=== PATIENT | female | born 1990 | race Caucasian/White ===

== ENCOUNTER → 2018-06-25 11:04 | Outpatient (CLI) | payer OTHER, SELFPAY ==
[2018-06-25 12:02] LABS: Absolute Lymphocyte Count 1.85 X10^3/ul (0.83-4.51); Absolute Neutrophil Count 2.3 X10^3/uL (2.0-7.7); Basophil# 0.03 X10^3/uL; Basophil% 0.6 % (0-1); Eosinophil# 0.07 X10^3/uL; Eosinophils% 1.5 % (0-5); Hematocrit 39.9 % (37-47); Hemoglobin 12.8 g/dl (12.0-15.0); Lymphocyte # 1.85 X10^3/ul (4.0); Lymphocyte % 39.9 % (19-41); Mean Corp Hgb Conc 32.1 g/gl (32-36); Mean Corpuscular Hgb 27.4 pg (27.0-32.0); Mean Corpuscular Volume 85.3 fL (81-99); Mean Platelet Vol. 11.3 fl (6.2-12.0); Monocyte% 8.6 % (0-10); Neutrophil # 2.29 X10^3/uL (2.7-7.7); Neutrophil % 49.4 % (47-70); Platelet Count 313 K/mm3 (150-450); RBC Distribution Width CV 13.2 % (11.6-14.6); RBC Distribution Width SD 40.5 fl (35.1-43.9); Red Blood Count 4.68 M/mm3 (4.2-5.4); White Blood Count 4.6 K/mm3 (4.4-11.0)
[2018-06-25 12:06] LABS: POSITIVE COUNT NO; POSITIVE DIFFERENTIAL NO; POSITIVE MORPHOLOGY NO
== END ==
LOC: MFPLAB 11:04 → MTRAD 11:10
PROVIDERS: Family Provider Family Medicine; PCP Family Medicine; Visit Provider Family Medicine
DX: M54.6 Pain in thoracic spine (principal); R53.83 Other fatigue
CPT/HCPCS: 36415; 72072; 85025

== ENCOUNTER → 2019-06-03 15:40 | Outpatient (CLI) | payer OTHER, SELFPAY ==
--- NOTE | 2019-06-03 15:43 | CT_ITS ---
STUDY: CT SOFT TISSUE NECK WITH CONTRAST REASON FOR EXAM: Female, 28 years old. Left posterior neck mass RADIATION DOSAGE (If Supplied By Facility): CTDIvol = ( 10.25 ) mGy, DLP = ( 291.67 ) mGycm TECHNIQUE: The patient was scanned in a multi-detector CT scanner. High resolution transaxial imaging was performed following intravenous administration of 75ml IV Isovue 300. Sagittal and coronal images were reconstructed. Individualized dose optimization techniques were used for this CT. COMPARISON: None. FINDINGS: Normal bilateral parotid glands. Normal bilateral floor associate spaces. Normal bilateral parapharyngeal spaces. Normal bilateral carotid spaces. Normal bilateral sublingual and submandibular glands and spaces. Normal visualized nasopharynx. Normal retropharyngeal space. Normal perivertebral space. Normal visualized bilateral faucial tonsils. The visualized tongue, tongue base and oropharynx are normal. The visualized cervical lymph nodes (levels I-) are within normal size limits, and maintain normal morphology. A skin markers been placed over the left posterior neck over region of clinical concern. No underlying neck masses or fluid collections are seen at the level of the marker. Several shotty nonenlarged lymph nodes are present in the neck bilaterally. There is no abnormal contrast enhancement. Normal epiglottis, bilateral vallecula and hypopharynx. The pre-epiglottic and paraglottic adipose spaces are normal. Normal visualized bilateral piriform sinuses, aryepiglottic folds, vocal cords, and arytenoid-cricoid articulations. Normal subglottic trachea. Normal bilateral lobes of the thyroid gland. Normal visualized pulmonary apices. Normal visualized paranasal sinuses. Normal visualized cervical spine. CT/Soft Tissue Neck WITH Contrast IMPRESSION: No evidence of neck mass or adenopathy. Electronically Signed: Abdon Prasad MD at 16:06 EDT Tel , Service support ,
== END ==
PROVIDERS: Family Provider Family Medicine; PCP Family Medicine; Referring Provider Otolaryngology; Visit Provider Otolaryngology
DX: R22.1 Localized swelling, mass and lump, neck (principal)
CPT/HCPCS: 70491; Q9967

== ENCOUNTER → 2019-11-10 11:02 | Outpatient (CLI) | payer OTHER, SELFPAY ==
[2019-11-10 12:17] LABS: Absolute Lymphocyte Count 0.71 X10^3/uL (0.83-4.51); Absolute Neutrophil Count 0.9 X10^3/uL (2.0-7.7); Basophil# 0.03 X10^3/uL; Basophil% 1.4 % (0-1); Eosinophil# 0.02 X10^3/uL; Eosinophils% 0.9 % (0-5); Hematocrit 39.1 % (37-47); Hemoglobin 12.3 g/dL (12.0-15.0); Lymphocyte # 0.71 X10^3/ul (4.0); Mean Corp Hgb Conc 31.5 g/dL (32-36); Mean Corpuscular Hgb 27.3 pg (27.0-32.0); Mean Corpuscular Volume 86.9 fL (81-99); Monocyte# 0.53 X10^3/uL; Monocyte% 23.9 % (0-10); NRBC Flagged by Analyzer 0 % (0-5); Neutrophil # 0.93 X10^3/uL (2.7-7.7); Neutrophil % 41.8 % (47-70); POSITIVE DIFFERENTIAL YES; Platelet Count 230 K/mm3 (150-450); RBC Distribution Width CV 13.3 % (11.6-14.6); RBC Distribution Width SD 42.3 fl (35.1-43.9); White Blood Count 2.2 K/mm3 (4.4-11.0)
[2019-11-10 12:24] LABS: D-Dimer Quantitative (DVT/PE) 0.35 FEU/ug/m (0.27-0.49)
[2019-11-10 12:25] LABS: Differential Indicated SCAN CRITERIA MET
[2019-11-10 12:43] LABS: Anion Gap 5 (5-15); BUN 11 mg/dL (7-18); BUN/Creat Ratio 13.8 RATIO (10-20); Calcium,Total 9.2 mg/dL (8.5-10.1); Chloride 107 mmol/L (98-107); EST Glomerular Filtration Rate 91 mL/min (>60); Est Glom Filt Rate - Afr Amer 110 mL/min (>60); Glucose 71 mg/dL (74-106); Potassium 4.1 mmol/L (3.5-5.1); Sodium Level 141 mmol/L (136-145)
[2019-11-10 12:45] LABS: Red Cell Morphology NORM C+C NORMAL (NORM C&C)
[2019-11-11 12:47] LABS: Pathologist Review Reviewed
== END ==
PROVIDERS: Family Provider Family Medicine; PCP Family Medicine; Referring Provider Family Medicine; Visit Provider Family Medicine
DX: R07.9 Chest pain, unspecified (principal)
CPT/HCPCS: 36415; 80048; 85025; 85379

== ENCOUNTER → 2019-11-22 10:51 | Outpatient (CLI) | payer OTHER, SELFPAY ==
--- NOTE | 2019-11-22 10:53 | NM_ITS ---
CLINICAL: 29-year-old female with reported history of abdominal pain. RADIONUCLIDE HEPATOBILIARY SCINTIGRAPHY COMPARISON: None available FINDINGS: Following the intravenous administration of 5.2 mCi of 99m Tc Mebrofenin, hepatobiliary images reveal: 1. Relatively prompt and homogeneous radiopharmaceutical concentration is noted by a normal sized liver. No parenchymal defects are identified. 2. Gallbladder activity is identified at 15 minutes post radiopharmaceutical administration. 3. Small intestinal tract is not visualized during 60 minutes of pre-CCK sequential imaging. Small bowel activity is identified following the administration of cholecystokinin. 4. Washout of the radiopharmaceutical by the hepatic parenchyma appears qualitatively normal. Cholecystokinin (0.02 ug/kg) was administered intravenously over a 30-minute period. The post CCK gallbladder ejection fraction calculated at 20 minutes following Cholecystokinin administration was noted to be 14.0 % (normal greater than 35%). NM/Hepatobilliary Img w/Pharm Int IMPRESSION: 1. ABNORMAL 99m Tc Mebrofenin hepatobiliary imaging examination with Cholecystokinin. A. A gallbladder ejection fraction calculated to be less than 35% following the administration of Cholecystokinin is consistent with the presence of functional hepatobiliary disease (gallbladder and/or sphincter of Oddi dyskinesia) and/or organic hepatobiliary disease (chronic acalculous cholecystitis and/or cystic duct syndrome) in patients with intermediate to high pretest likelihoods of hepatobiliary illness. (Darryl Hendricks et al, Journal of Nuclear Medicine 32:1695, 1991). Electronically Signed: Ruben Claros DO at 23:41 EST Tel , Service support ,
== END ==
PROVIDERS: PCP Family Medicine; Referring Provider Nurse Practitioner Adult Health; Visit Provider Nurse Practitioner Adult Health
DX: Z83.79 Family history of other diseases of the digestive system (principal)
CPT/HCPCS: 78227; A9537; J2805

== ENCOUNTER → 2019-12-01 16:59 | Outpatient (CLI) | payer OTHER, SELFPAY ==
[2019-11-25 13:44] VITALS: BMI 23.4
[2019-12-01 18:19] LABS: AST(SGOT) 19 U/L (15-37); Alanine Aminotransfer ALT/SGPT 28 U/L (13-56); Albumin, Serum 4.3 g/dL (3.2-5.0); Alkaline Phosphatase 78 U/L (45-117); Anion Gap 3 (5-15); BUN 7 mg/dL (7-18); BUN/Creat Ratio 9.1 RATIO (10-20); CRP 5.78 mg/L (0.0-3.0); Calcium,Total 9.4 mg/dL (8.5-10.1); Chloride 105 mmol/L (98-107); Creatinine, Serum 0.77 mg/dL (0.55-1.02); EST Glomerular Filtration Rate 94 mL/min (>60); Est Glom Filt Rate - Afr Amer 114 mL/min (>60); Globulin 4.5 g/dL (2.2-4.2); Glucose 89 mg/dL (74-106); Potassium 3.8 mmol/L (3.5-5.1); Protein, Total 8.8 g/dL (6.4-8.2); Sodium Level 138 mmol/L (136-145)
[2019-12-03 16:08] LABS: Endomysial Antibody IgA Negative (Negative)
[2019-12-03 21:28] LABS: Immunoglobulin A 147 mg/dL (87-352); t-Transglutaminase IgA <2 U/mL (0-3)
== END ==
PROVIDERS: PCP Family Medicine; Referring Provider Internal Medicine Gastroenterology; Visit Provider Internal Medicine Gastroenterology
DX: R10.9 Unspecified abdominal pain (principal)
CPT/HCPCS: 36415; 80053; 82784; 83516; 86140; 86255

== ENCOUNTER → 2019-12-10 | Outpatient (CLI) | payer OTHER, SELFPAY ==
[2019-11-25 13:44] VITALS: BMI 23.4
[2019-12-10 15:40] LABS: Absolute Lymphocyte Count 1.61 X10^3/uL (0.83-4.51); Absolute Neutrophil Count 3.6 X10^3/uL (2.0-7.7); Basophil# 0.05 X10^3/uL; Basophil% 0.8 % (0-1); Eosinophil# 0.06 X10^3/uL; Hematocrit 41.4 % (37-47); Hemoglobin 12.8 g/dL (12.0-15.0); Lymphocyte # 1.61 X10^3/ul (4.0); Lymphocyte % 27.3 % (19-41); Mean Corp Hgb Conc 30.9 g/dL (32-36); Mean Corpuscular Volume 87.3 fL (81-99); Mean Platelet Vol. 10.7 fl (6.2-12.0); Monocyte# 0.61 X10^3/uL; Monocyte% 10.4 % (0-10); NRBC Flagged by Analyzer 0 % (0-5); Neutrophil # 3.55 X10^3/uL (2.7-7.7); Neutrophil % 60.3 % (47-70); Platelet Count 358 K/mm3 (150-450); RBC Distribution Width CV 13.2 % (11.6-14.6); RBC Distribution Width SD 42.4 fl (35.1-43.9); Red Blood Count 4.74 M/mm3 (4.2-5.4); White Blood Count 5.9 K/mm3 (4.4-11.0)
== END | disposition home or self-care (01) ==
LOC: MFPLAB 11:51
PROVIDERS: PCP Family Medicine; Referring Provider Family Medicine; Visit Provider Family Medicine
DX: D72.9 Disorder of white blood cells, unspecified (principal)
CPT/HCPCS: 36415; 85025

== ENCOUNTER 2020-04-06 07:54 | Day surgery (SDC) | payer OTHER, SELFPAY ==
[2019-11-25 13:44] VITALS: BMI 23.4
--- NOTE | 2020-04-06 08:05 | EKG12_ITS ---
Test Reason : PRE OP Blood Pressure : / mmHG Vent. Rate : 062 BPM Atrial Rate : 062 BPM P-R Int : 140 ms QRS Dur : 108 ms QT Int : 400 ms P-R-T Axes : 078 024 038 degrees QTc Int : 406 ms Normal sinus rhythm with sinus arrhythmia Incomplete right bundle branch block Confirmed by CATRACHITO VALERA, THERON ([id number]), editorial cartoonist JUDY IBRAHIM ([id number]) on 04/12/2020 1:30:38 PM Referred By: Loan Agee Confirmed By:THERON WINSTON MD
[2020-04-06 08:19] VITALS: BP 107/67; PULSE 60; RESP 14; TEMP 37.1; O2SAT 100; BMI 23.5
[2020-04-06 08:32] LABS: Internal QC Validated? YES +Cl - CLEAR BKGD; Pregnancy, Urine Negative Negative
--- NOTE | 2020-04-06 08:39 | HP.PCM_ITS ---
History of Present Illness Date of Admission: 04/06/20 The patient is a 29 year old F presents for laparoscopic cholecystectomy. Patient had a HIDA scan that showed biliary dyskinesia of 14% ejection fraction. Patient's pain is atypical typically constant in the left back, also complains of bloating and gas which usually coincides with eating. The left back pain does not seem to coincide with the eating. Patient has been on omeprazole for several weeks as well as Protonix for several weeks and denies any changes of symptoms with either. Patient and are going to try getting again. Past Medical History Medical History: Medical History (Last Updated 11/25/19 @ 13:43 by Madeleine Mayo) Abnormal biliary HIDA scan R94.8 Anxiety F41.9 Allergies No Known Allergies Allergy (Verified 04/04/20 08:12) Home Medications: Ambulatory Orders Medication Instructions Recorded cholecalciferol (vitamin D3) 250 10,000 unit PO DAILY 11/25/19 mcg (10,000 unit) capsule Pantoprazole Sodium 40 mg PO DAILY #20 tab 12/13/19 Surgical History: Surgical History (Last Updated 11/25/19 @ 13:43 by Madeleine Mayo) History of wisdom tooth extraction K08.409 Surgical History: no surgical history Psychiatric History: No pertinent psych hx 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 Smoking Status: Never smoker Tobacco Use: Non-smoker VTE Information - Inpt Only VTE Present on Admission: Yes VTE Mechan Device Prophylaxis: SCD's - Physical Exam Vitals/I&O's: Vital Signs Temp Pulse Resp BP Pulse Ox 98.8 F 60 14 107/67 100 04/06/20 08:19 04/06/20 08:19 04/06/20 08:19 04/06/20 08:19 04/06/20 08:19 Oxygen Delivery Method Room Air Weight: 143 lb 8.335 oz Body Mass Index (BMI) 23.5 General: Alert, Oriented x3, Cooperative, No apparent distress HEENT: Atraumatic Lungs: Normal air movement Cardiovascular: Regular rate Abdomen: Soft, Non Tender, Non-Distended Extremities: No clubbing, No cyanosis, No edema Neurological: Cranial nerves II-XII grossly intact Psych/Mental Status: Normal Affect Laboratory Results 04/06/20 08:14: Total Bilirubin Pending, Direct Bilirubin Pending, AST Pending, ALT Pending, Alkaline Phosphatase Pending, Total Protein Pending, Albumin Pending 04/06/20 08:15: Urine Test Negative 04/06/20 10:34: COVID-19 (PAWEL) Not Detected Assessment/Plan 21-year-old female with biliary dyskinesia Discussed with patient that as her pain is atypical unsure that removing her gallbladder is going to relieve the left back pain as well as the gas and bloating. Patient expressed understanding and wanted to proceed. Reviewed the anatomy with the patient and discussed the procedure: laparoscopic cholecystec rylan with possible cholangiograms, possible open. Review risks including but not limited to bleeding, infection, hernia, bile leak, retained gallstones requiring another procedure ERCP- Endoscopic Retrograde Cholangiopancreatography, injury to another organ (bile ducts, common bile duct, small bowel, etc.) and conversion to an open procedure. All questions were answered. Loan Agee M.D. Pager: [phone] [facility] [address] [place] [address] [place] [address] Office: [phone] Procedure Criteria Procedure Type: Elective Procedure Essential: No COVID Risk Discussion: The surgeon/proceduralist and patient have discussed in detail the risk of exposure to and/or potential harm posed by the COVID-19 virus with having a surgery/procedure at this time versus the risk of delaying the surgery/procedure. It is not possible to know either the risk of delaying the surgery or procedure or chance of getting an infection with perfect accuracy, but a joint decision was made between the patient and the surgeon/proceduralist to proceed at this time with the scheduled surgery/procedure as indicated on the consent form.
[2020-04-06 08:43] LABS: AST(SGOT) 18 U/L (15-37); Alanine Aminotransfer ALT/SGPT 19 U/L (13-56); Albumin, Serum 3.8 g/dL (3.2-5.0); Alkaline Phosphatase 51 U/L (45-117); Bilirubin, Direct 0.28 mg/dL (0.00-0.30); Globulin 3.4 g/dL (2.2-4.2); Protein, Total 7.2 g/dL (6.4-8.2)
[2020-04-06] MEDS: Lactated Ringers 1,000 ML 100 ML IV (09:01)
[2020-04-06] MEDS: Cefazolin 2 GM in 0.9% Normal Saline 100 ML IV (09:21)
[2020-04-06] MEDS: Bupivacaine Mpf 0.5% 30 ML VIAL (09:21)
--- NOTE | 2020-04-06 09:35 | GALL_PTH ---
PATIENT: LISSETH WATTS LOC: [facility] [place] U#:[id number] AGE/SX: 29/F ROOM: RE04/06/[address]: Dr. Loan Agee MD : 1990 BED: DIS: 04/06/2020 SPEC #: [id number] RECD: 04/06/20 14:40 STATUS: AGNES RENAN #: [id number] GAVI: 04/06/20 09:[address]: Loan Agee DEPT: SURGICAL PATHOLOGY RECD BY: Diana Ahuja ENTERED: 04/07/20 09:34 SP TYPE: BEE FLORES DR: Dr. Yayo Dasilva MD Tissues: Gallbladder, NOS Procedures: Surgery Specimen Level III HEADER OPERATION: Laparoscopic cholecystectomy PRE-OP DIAGNOSIS: Biliary dyskinesia TISSUE SUBMITTED: Gallbladder MICROSCOPIC DIAGNOSIS Gallbladder, cholecystectomy: Mild chronic cholecystitis. No stones are identified in the container or in the gallbladder. SJ:leighann 04/10/20 MICROSCOPIC DESCRIPTION Slides are reviewed. GROSS DESCRIPTION Received is one container labeled with the patient's name and designated gallbladder. The specimen consists of a gallbladder measuring 7 cm in length and up to 3 cm in diameter. The external surface is pink-willoughby, smooth and glistening for the most part. Focally it is granular, hemorrhagic and contains cautery artifact. The gallbladder contains green-yellow mucoid bile and a small amount of sludge material. No stones are identified in the container or in the gallbladder. The mucosa is bile-stained and without any mass lesions. The gallbladder wall measures up to 0.2 cm in thickness. Superintendent [employer] sections from the gallbladder and the cystic duct are submitted in one cassette. / SJ:rg 04/07/20 TC:3 CPT: 37906
--- NOTE | 2020-04-06 09:35 | RAD_ITS ---
STUDY: INTRAOPERATIVE CHOLANGIOGRAM. REASON FOR EXAM: Female, 29 years old. IOC FLUOROSCOPY TIME (if supplied): ( 4.8 seconds ) minutes/seconds TECHNIQUE: An intraoperative cholangiogram was performed by the surgeon. Imaging was submitted. A cine loop of 25 images were submitted. COMPARISON: None. FINDINGS: The intrahepatic biliary ducts are unremarkable. The common bile duct is not dilated. No intraluminal filling defect is seen. There is free flow of contrast into the duodenum. RAD/Cholangiogram/ O R,Initial IMPRESSION: Unremarkable intraoperative cholangiogram. Electronically Signed: Stevie Narayan, at 10:50 EDT , Service support ,
--- NOTE | 2020-04-06 10:01 | PCM.OPRPT ---
Report of Operation Date of Procedure: 04/06/20 Pre-Operative Diagnosis: Biliary dyskinesia Post-Operative Diagnosis: Same Surgery/Procedure Performed:: Laparoscopic cholecystectomy with cholangiograms computer video game designer: Mari Mcwilliams Type of Anesthesia:: General/Supplemental Anesthesiologist: Jens Osullivan Special Medications: Ancef 2 g IV x1 Specimen's removed: Gallbladder Estimated Blood Loss (mL): <10 cc Fluids Replaced: 800 cc Description of Procedure: Indications this is a 29 year-old female who developed left upper back pain, gas and bloating especially after eating, no change with PPIs and on workup was found to have biliary dyskinesia with ejection fraction on the HIDA of 14%. Laparoscopic cholecystectomy was elected. Description procedure: The patient was placed on operating table in supine position. General Anesthesia was induced. A timeout was completed verifying correct patient, procedure, site, position and special equipment prior to beginning procedure. The abdomen was prepped and draped in usual sterile fashion. An incision was made in the natural skin line below the umbilicus. The fascia was elevated and incised. The peritoneum was elevated and incised. Entry into the peritoneum was confirmed visually and no bowel was noted in the vicinity of the incision. Ramon trocar was placed. The abdomen was insufflated with carbon dioxide to a pressure of 12-15 mmHg. Patient tolerated insufflation well. The laparoscope was then inserted and abdomen inspected. No injuries from initial trocar placement were noted. Additional trochars were then inserted in the following locations 5 mm trocar in the epigastrium and 2 more 5 mm trochars along the right costal margin. The abdomen was inspected no abnormalities were found. The table is placed in reverse Trendelenburg position with the right side up. The adhesions between the gallbladder and omentum were lysed sharply. The dome of the gallbladder was grasped with atraumatic grasper passed through the lateral port and retracted over the dome of the liver. Infundibulum was then grasped with atraumatic grasper through the midclavicular port and retracted to the right lower quadrant. This maneuver exposed Calot's triangle. The peritoneum overlying the gallbladder infundibulum was then incised and cystic duct and artery identified and circumferentially dissected. Shelby catheter was used for cholangiograms. The cholangiogram showed good filling of the common bile duct into the duodenum with no filling defects, good filling of the right and left bile ducts as well. The cystic duct and artery were then doubly clipped and divided close to the gallbladder. The gallbladder then dissected from its peritoneal attachments by electrocautery. Hemostasis was checked and the gallbladder and contained stones were removed using the endoscopic retrieval bag through the umbilical port. The gallbladder is passed off table as specimen. The gallbladder fossa was copiously irrigated with saline and hemostasis obtained. There is no evidence of bleeding from the gallbladder fossa or cystic artery leakage of bile from the cystic duct stump. Secondary trochars removed under direct vision. No bleeding was noted the trocar sites. The laparoscope was withdrawn and umbilical trocar removed. The abdomen was allowed to collapse. The fascia of the 12 mm trocar was closed with a [id number] 0 Vicryl suture. The skin was closed with sutures of 4-0 Monocryl and Steri-Strips. The orogastric tube was removed and the patient was extubated. The patient tolerated procedure well and was taken to the postanesthesia care unit in stable condition. - Complications none
--- NOTE | 2020-04-06 10:09 | DCINST_ITS ---
Discharge Diet: Light diet - advance as tolerated Discharge Activity: May not drive while taking narcotic pain medications. May shower in (days): 1 Lifting Restrictions: No lifting greater than 20 pounds x 2 weeks no strenuous exercise for 4 wks Call your doctor if your incision/area has: Continuous Slow Oozing, Sudden Increased Bleeding, Increased Pain/ Swelling, Increased Redness, Foul Smelling Discharge, Swelling at the incision site Call your doctor if you observe: Fever of 101 or Higher Remove Dressing in (days):: 1 - Okay to remove OpSite tomorrow, Steri-Strips stand for 7 to 10 days a drain out follow-up in 10 days okay to remove Additional Instructions: Okay to take ibuprofen 400-600 mg PO q6hr PRN along with the hydrocodone/acetaminophen. Avoid Tylenol since there is already Tylenol in the hydrocodone/acetaminophen. Take all pain meds with food. Hydrocodone/acetaminophen can cause constipation recommend taking daily stool softener (i.e. Colace/docusate) while taking the pain meds. Recommend starting some MiraLAX 1 to 2 days if no bowel movement. If still no bowel movement following day recommend taking magnesium citrate half the bottle and waiting 4-6 hours if still no results take the other half the bottle. Allergies/Adverse Reactions: Allergies No Known Allergies Allergy (Verified 04/04/20 08:12) Medications to take at Discharge cholecalciferol (vitamin D3) 250 mcg (10,000 unit) capsule 10,000 unit PO DAILY 11/25/19 Pantoprazole Sodium 40 mg PO DAILY #20 tab 12/13/19 Hydrocodone Bitart/Apap 5-325 [[place] 5MG-325MG] 1 - 2 tablet PO Q6H PRN PRN 4 Days #20 tablet 04/06/20 The following prescriptions were given: Hydrocodone Bitart/Apap 5-325 [Keyport 5MG-325MG] 1 - 2 tablet PO Q6H PRN PRN 4 Days #20 tablet PRN Reason: Pain Transmission Status: Sent to [facility] Primary Care Physician: Yayo Dasilva MD [Primary Care Provider] - Test Results: Test results from this visit will be discussed in further detail at your follow- up appointment, if applicable. Please Follow Up With: Loan Agee MD - After 5 PM on the weekends call [phone] When: Call the office for follow-up appointment in 2 weeks virtual/phone Proposed Discharge Date: 04/06/20
[2020-04-06 10:15] VITALS: BP 107/67; BP 130/81; PULSE 66; RESP 14; TEMP 37.1; O2SAT 98
[2020-04-06 10:29] VITALS: BP 107/67; BP 124/77; PULSE 55; RESP 16; O2SAT 100
[2020-04-06 10:45] VITALS: BP 107/67; BP 113/82; PULSE 62; RESP 14; O2SAT 100
[2020-04-06 10:59] VITALS: BP 107/67; BP 122/74; PULSE 60; RESP 14; TEMP 36.3; O2SAT 99
[2020-04-06 12:14] VITALS: BP 103/70; BP 107/67; PULSE 57; RESP 18; TEMP 36.9; O2SAT 97
== END 2020-04-06 12:19 | disposition home or self-care (01) ==
LOC: SDC 07:58 → AC 07:59
PROVIDERS: Anesthesiology; PCP Family Medicine; Referring Provider Surgery; Visit Provider Surgery
PROC: (CPT 47610; principal; 2020-04-06 09:15)
DX: K81.1 Chronic cholecystitis (principal); Z11.59 Encounter for screening for other viral diseases; Z79.899 Other long term (current) drug therapy
CPT/HCPCS: 00790; 47563; 36415; 74300; 76000; 80076; 81025; 87635; 88304; 93005; G2023; J7120; J2405; U0003

== ENCOUNTER 2020-05-18 10:00 | Outpatient (RCR) | payer OTHER, SELFPAY ==
[2020-04-18 08:41] VITALS: BMI 23.5
--- NOTE | 2020-05-04 14:02 | HP.PTEVAL ---
Patient's Visit Information LISSETH WATTS is a 29 year old F referred to Physical Therapy by Dr. Yayo Dasilva MD with a diagnosis of L ARM NUMBNESS/PAIN AND L THORACIC BACK PAIN.. Date of Evaluation: 05/04/20 Physical Therapist: Di Dean PT, Cert MDT - Visit Plan Frequency: 2-3x /Week Duration: 4-6 Weeks Plan: CONSIDER CTX. CONSIDER US, ESTIM W/MH OR CP. POSTURE CORRECTION/STRENGTHENING, INSTRUCTION IN APPROPRIATE BODY MECHANICS AND ACTIVITY MODIFICATIONS. IVANIA UE ROM, STRETCHING AND STRENGTHENING. HEP INSTRUCTION. FOCUS ON SCAPULAR STRENGTHENING WITH THER EX. - Subjective Work/Leisure: STAY AT HOME MOM: 2 CHILDREN AGES 2 AND 4. Disability: NO. Present symptoms: HEADACHES. LEFT NECK PAIN. LEFT UPPER BACK PAIN, INTERMITTENT UE PAIN, NUMBESS AND TINGLING MAINLY TO LAST TWO FINGERS. LEFT SHOULDER ACHING. NO RIGHT UE SX'S BUT SOMETIMES CAN FEEL SOME RIGHT UPPER BACK PAIN JUST BELOW SHOULDER BLADE. VERY RECENT ONSET OF LEFT LBP. PAIN SOMETIMES WRAPS AROUND LEFT RIB CAGE. Present since: ABOUT YEAR AGO. Pain Scale: Worst - 6/10 Least - 1/10. Currently: 11/05. Commenced as a result of: NO APPARENT REASON. Symptoms at onset: HEADACHE. Worse: STRESS, LIFITNG, JOGGING. Better: REST OR JUST TIME. Disturbed sleep: YES. SOMETIMES HARD TO GET COMFORTABLE TO GO TO SLEEP BUT DOESN'T WAKE HER UP AT NIGHT. Previous history/Previous treatment: CHIROPRACTOR REGULARLY SINCE LAST DECEMBER WHEN THIS CAME ON. INITIALLY WENT TO CHIROPRACTOR FOR TENSION HEADACHES BUT AFTER STARTING GOING TO CHIROPRACTOR NOTICED A LUMP BEHIND LEFT YEAR. AFTER NOTICING LUMP TRIED NEEDLING AND CUPPING. LUMP HAS BECOME PAINFUL. MASSAGE THERAPY - NE. PATIENT REPORTS ACTUALLY HAVING A HISTORY OF CHEST PAINS AND LEFT UE SX'S GOING BACK TO CHILDHOOD. HAS HAD HEART WORK UP BUT NO POSITIVE DX. PATIENT FELL OUT OF BED ABOUT AGE 5 AND BROKE HER COLLAR BONE. Dizziness: INTERMITTENT. Tinnitis: NO. Nausea: YES. Shortness of Breath: YES - STARTED IN OCT 2019. Difficulty Swollowing: NO. Gait: PATIENT REPORTS IVANIA LE BIG TOE NUMBNESS THAT IS CHRONIC. NO DIFFICULTY WITH GAIT. Accidents: NO. Unexplained weight loss: NO. Imaging: CAT SCAN LAST SUMMER OF HEAD/NECK - NORMAL. PMH/Recent major surgery: GALLBLADDER REMOVAL A MONTH AGO. - Objective Sitting Posture/Standing Posture: POOR. FORWARD HEAD AND ROUNDED SHOULDERS. NO TORTICOLLIS. Active Correction of posture: BETTER. Other Observations: INDEP GAIT AND TRANSFERS. Motor deficit: 55 LBS LEFT AND 65 LBS RIGHT WITH PATIENT RIGHT HANDED. OTHERWISE IVANIA UE MMT'ING WFL. Sensory deficit: IVANIA UE LIGHT TOUCH SENSATION INTACT AND SYMMETRICAL. ROM deficit: IVANIA UE'S WFL. Dural Signs: POSITIVE LUE. Cervical Mvmt Loss: Flex: NIL - INCREASES NECK AND LEFT UPPER BACK SX'S. Pro: NIL - INCREASES LEFT NECK. Ext: MIN - PINCHES AT BASE OF NECK. Ret: MOD - PINCHES AT BASE OF NECK. RSB: MIN - NE. LSB: MIN - NE. R Rot: MIN - FEELS FRYE INTO LEFT SIDE OF HEAD. L Rot: NIL - NE. Postural strength: POOR. Palpation: INCREASED MUSCLE TONE IVANIA UPPER TRAPS, AND CERVICAL MUSCULATURE. NO ACUTE TENDERNESS. OTHER: CERVICAL DISTRACTION TESTING HAS NE ON SX'S TODAY. TREATMENT: NEUROMUSCULAR REEDUCATION - RETRAINING OF MVMT AND POSTURE FOR SITTING, LYING AND STANDING ACTIVITIES. - Goals Goal 1:: DECREASE C/O HEAD, NECK, UPPER BACK AND LUE SX'S. Goal Time Frame: 4-6 Weeks Goal 2:: IMPROVE ADL, RECREATIONAL, AND SLEEP FUNCTION Goal Time Frame: 4-6 Weeks Goal 3:: INSTRUCT IN PROPHYLAXIS Goal Time Frame: 4-6 Weeks - Anticipated Interventions Patient/Client Instruction: Educate patient on: Condition, Plan of Care, Risk Factors, Benefits of Fitness Program For the Purpose of:: To improve self management Therapeutic Exercise to Include: Strength training, Body mechanics, Postural training, Flexibilty training, Neuromotor development, Scapular Strength/Stabilization For the Purpose of:: To decrease pain, To increase ROM, To improve muscle performance and motor function, To increase tolerance to activity/condition/position, To improve ability of physical actions for home/community/work/leisure Manual Therapy Techniques to Include: Mobilization, Soft tissue mobilization For the Purpose of:: To decrease pain, To increase ROM, To improve nutrient delivery to tissue TENS: Yes IF ES: Yes Cryotherapy (ice pack, ice massage): Yes Thermo therapy (hot pack): Yes Ultrasound (thermal/non thermal): Yes Intermittent cervical traction: Yes For the Purpose of:: To decrease pain, To increase ROM, To improve nutrient delivery to tissue Thank you for the opportunity to evaluate your patient. For Medicare and Medicare HMO plans, please review the plan of care and approve it. It will need to be FAXED BACK to us at [phone] for Medicare purposes. For Medicare only, by signing this I certify the plan of care. Please let me know if there are questions or concerns regarding this plan of care. Physician Signature: Date:
--- NOTE | 2020-05-18 10:28 | HP.PTDCSUM ---
It has been my pleasure to treat LISSETH WATTS referred by Dr. Yayo Dasilva MD, with the diagnosis of L ARM NUMBNESS/PAIN AND L THORACIC BACK PAIN. for a total of 6 visit(s). Discharge Date: Please see the following information for a summary of their discharge status. Subjective: PATIENT REPORTS NO EFFECT OVER-ALL FROM TRIAL OF TRACTION LAST VISIT. INCREASED PAIN TODAY FOR NO APPARENT REASON. LEFT MED SCAP Pain Intensity (Out of 10): 3 % Improvement: 50 Objective/Function: PATIENTS NECK HAS BECOME LOOSER BUT LEFT UPPER BACK PAIN IS NOT CHANGING. Goal 1:: DECREASE C/O HEAD, NECK, UPPER BACK AND LUE SX'S. Goal Progress: Progressing Goal 2:: IMPROVE ADL, RECREATIONAL, AND SLEEP FUNCTION Goal Progress: Progressing Goal 3:: INSTRUCT IN PROPHYLAXIS Goal Progress: Progressing Plan: D/C TO HEP AND FOLLOW UP WITH DR. DASILVA NEEDED. PATIENT AGREEABLE. If there are questions or concerns regarding this patient's physical therapy, please feel free to call me at [phone]. Thank you for the referral of this patient. Sincerely, Di Dean, PT, Cert MDT
== END 2020-05-18 19:00 | disposition home or self-care (01) ==
LOC: PT 10:00
PROVIDERS: PCP Family Medicine; Visit Provider Family Medicine
DX: M79.602 Pain in left arm (principal); M54.6 Pain in thoracic spine
CPT/HCPCS: 97012; 97014; 97035; 97110; 97112; 97162; 97530; G0283

== ENCOUNTER → 2020-06-02 16:17 | Outpatient (CLI) | payer OTHER, SELFPAY ==
[2020-04-18 08:41] VITALS: BMI 23.5
--- NOTE | 2020-06-02 16:20 | MRI_ITS ---
STUDY: MRI CERVICAL SPINE WITHOUT CONTRAST REASON FOR EXAM: Female, 29 years old. Recurring H/A''s, pain in neck that radiates to face, Pain left upper /mid back under scapula TECHNIQUE: Standardized fat and water weighted pulse sequences were obtained in the sagittal and axial planes. COMPARISON: None FINDINGS: Normal foramen magnum and brainstem-cervical cord junction. Normal craniovertebral junction. Normal anterior atlantoaxial articulation. Normal odontoid process. Normal cervical lordosis. Normal vertebral bodies and posterior osseous elements. C2-3: Normal endplates. Normal disc height, signal and morphology. Normal central canal and intervertebral neural foramina. C3-4: Disc osteophyte complex without compressive sequelae. C4-5: Normal endplates. Normal disc height, signal and morphology. Normal central canal and intervertebral neural foramina. C5-6: Disc osteophyte complex without compressive sequelae. C6-7: Central disc protrusion with mild central canal stenosis. C7-T1: Central disc protrusion with mild central canal stenosis. Normal cervical cord. Normal visualized soft tissue structures. MRI/Spine Cervical (Routine) IMPRESSION: Multilevel degenerative disease as described. No evidence of cord pathology or exiting nerve root impingement. Electronically Signed: Abdon Prasad MD at 20:47 EDT Tel , Service support ,
--- NOTE | 2020-06-02 16:21 | MRI_ITS ---
STUDY: MRI BRAIN WITHOUT CONTRAST REASON FOR EXAM: Female, 29 years old. Recurring H/A''s, pain in neck that radiates to face, Pain left upper /mid back under scapula TECHNIQUE: Standardized multiplanar fat and water weighted pulse sequences were obtained. COMPARISON: None. FINDINGS: Normal size of the ventricles and extra-axial spaces for the patient''s age. An indeterminate round T2 hyperintense focus is present in the subcortical white matter of the right frontal lobe measuring 6 x 5 mm. This is not associated with restricted diffusion. This focus is faintly T1 hypointense. Postcontrast images are recommended to characterize further. Normal bilateral basal ganglia. Normal thalami. There is no extra-axial fluid accumulation. Normal flow voids within the major intracranial circulation suggesting patency by spin echo criteria. Normal sella turcica, pituitary gland, infundibular stalk, optic chiasm and hypothalamus. Normal tectal plate and pineal gland. Normal midbrain, kayleigh and medulla. Normal cerebellum. Normal basal cisterns. Normal bilateral temporal bones. Normal bilateral internal auditory canals. No demonstrated orbital abnormality, within the constraints of a routine brain study. Normal visualized paranasal sinuses. Normal calvarium and skull base. Normal visualized soft tissue structures. Normal visualized upper cervical spine. MRI/Brain without Contrast IMPRESSION: An indeterminate round T2 hyperintense focus is present in the subcortical white matter of the right frontal lobe measuring 6 x 5 mm. Postcontrast images are recommended to characterize further. Electronically Signed: Abdon Prasad MD at 18:22 EDT Tel , Service support ,
--- NOTE | 2020-06-02 16:22 | MRI_ITS ---
STUDY: MRI THORACIC SPINE WITHOUT CONTRAST REASON FOR EXAM: Female, 29 years old. Recurring H/A''s, pain in neck that radiates to face, Pain left upper /mid back under scapula TECHNIQUE: Standardized fat and water weighted pulse sequences were obtained in the sagittal and axial planes. COMPARISON: None. FINDINGS: Normal kyphosis of the thoracic spine. There is no substantial scoliosis. T1-2, T2-3, T3-4, T4-5, T5-6, T6-7, T7-8, T8-9, T9-10, T10-11, T11-12: Normal endplates. Normal disc hydration, heights and morphology of the corresponding intervertebral discs. Normal central canal and intervertebral neural foramina at the corresponding levels. Normal visualized thoracic cord. The soft tissue structures are unremarkable. MRI/Spine Thoracic (Routine) IMPRESSION: Normal unenhanced MRI examination of the thoracic spine. Electronically Signed: Abdon Prasad MD at 20:51 EDT Tel , Service support ,
== END ==
PROVIDERS: PCP Family Medicine; Referring Provider Family Medicine; Visit Provider Family Medicine
DX: R51 Headache (principal); M54.2 Cervicalgia; M54.6 Pain in thoracic spine
CPT/HCPCS: 70551; 72141; 72146

== ENCOUNTER → 2020-06-12 | Outpatient (CLI) | payer OTHER, SELFPAY ==
[2020-04-18 08:41] VITALS: BMI 23.5
--- NOTE | 2020-06-12 12:45 | MRI_ITS ---
STUDY: MRI BRAIN WITH CONTRAST REASON FOR EXAM: Female, 29 years old. abn mri F/U TECHNIQUE: Standardized multiplanar fat and water weighted pulse sequences were obtained. IV DOTAREM 13CC was administered for the contrast portion of the examination. COMPARISON: None. FINDINGS: Normal size of the ventricles and extra-axial spaces for the patient''s age. Normal white matter tracts of the supratentorial brain. The previously described hyperintensity within the white matter of the right frontal lobe does not demonstrate contrast enhancement. Normal bilateral basal ganglia. Normal thalami. There is no extra-axial fluid accumulation. Normal flow voids within the major intracranial circulation suggesting patency by spin echo criteria. Normal venous enhancement. There is no enhancing intra-axial or extra-axial abnormality. Normal sella turcica, pituitary gland, infundibular stalk, optic chiasm and hypothalamus. Normal tectal plate and pineal gland. Normal midbrain, kayleigh and medulla. Normal cerebellum. Normal basal cisterns. Normal bilateral temporal bones. Normal bilateral internal auditory canals. No demonstrated orbital abnormality, within the constraints of a routine brain study. Normal visualized paranasal sinuses. Normal calvarium and skull base. Normal visualized soft tissue structures. Normal visualized upper cervical spine. MRI/Brain WITH Contrast IMPRESSION: No contrast enhancement of previously described hyperintensity within the white matter of the right frontal lobe. Differential diagnosis includes microangiopathic gliosis from chronic hypertension or metabolic disease, hypercoagulable state including antiphospholipid antibody syndrome, vasculitis, migraine headaches, demyelinating disease (multiple sclerosis), Lyme disease, or low-grade glioma. Electronically Signed: Ruben Kumar MD at 13:38 EDT Tel , Service support ,
== END | disposition home or self-care (01) ==
LOC: MRI 12:39
PROVIDERS: PCP Family Medicine; Referring Provider Family Medicine; Visit Provider Family Medicine
DX: R90.89 Other abnormal findings on diagnostic imaging of central nervous system (principal)
CPT/HCPCS: 70552; A9575

== ENCOUNTER → 2021-03-09 14:55 | Outpatient (CLI) | payer OTHER, SELFPAY ==
[2020-04-18 08:41] VITALS: BMI 23.5
[2021-03-09 17:55] LABS: Anion Gap 7 (5-15); BUN 11 mg/dL (7-18); BUN/Creat Ratio 13.6 RATIO (10-20); Calcium,Total 9.3 mg/dL (8.5-10.1); Chloride 105 mmol/L (98-107); Creatinine, Serum 0.81 mg/dL (0.55-1.02); EST Glomerular Filtration Rate 88 mL/min (>60); Est Glom Filt Rate - Afr Amer 107 mL/min (>60); Glucose 84 mg/dL (74-106); Magnesium 2.2 mg/dL (1.6-2.6); Potassium 3.6 mmol/L (3.5-5.1); Sodium Level 140 mmol/L (136-145); T4 Total, Thyroxin 7.9 ug/dL (4.8-13.9); Thyroid Stim Hormone (TSH) 1.44 uIU/mL (0.358-3.74)
== END ==
PROVIDERS: PCP Family Medicine; Referring Provider Internal Medicine Gastroenterology; Visit Provider Internal Medicine Gastroenterology
DX: K59.00 Constipation, unspecified (principal)
CPT/HCPCS: 36415; 80048; 83735; 84436; 84443

== ENCOUNTER 2022-01-24 10:18 | Outpatient (CLI) | payer OTHER, SELFPAY ==
--- NOTE | 2022-01-24 10:45 | MRI_ITS ---
EXAM: MR HEAD WITHOUT AND WITH INTRAVENOUS CONTRAST CLINICAL INDICATION: Prev. Abn. MRI, F/U, no complaints from patient TECHNIQUE: Multiplanar and multisequence MR images of the brain were obtained without and with intravenous contrast. This report was created using [employer] report generation technology. CONTRAST: IV 13ml Dotarem COMPARISON: 06/12/2020. This demonstrated a small lesion in the right frontal deep white matter anteriorly that measured approximately 5 mm in diameter that was low signal on T1, high signal on T2 and FLAIR, and did not demonstrate enhancement. FINDINGS: BRAIN AND EXTRA-AXIAL SPACES: The same lesion is identified and is unchanged in size measuring approximately 5 mm. It is high signal on T2 and FLAIR and low signal on T1. It is not seen on the diffusion-weighted images. However, on the current examination it does demonstrate homogeneous enhancement. No other changes are noted. Ventricles remain normal in size. No intra- or extra-axial hemorrhage. No evidence of acute infarct. There is preservation of the holm/white matter interface. Posterior fossa structures are unremarkable. Basal cisterns are patent. SELLA: Unremarkable. Normal sella turcica, pituitary gland, infundibular stalk, optic chiasm and hypothalamus. AUDITORY SYSTEM: Unremarkable. The internal auditory canals are patent. BONES/JOINTS: Unremarkable. No discrete lytic or blastic abnormalities. SINUSES: Unremarkable as visualized. Clear. MASTOID AIR CELLS: Unremarkable as visualized. Clear. ORBITS: Unremarkable as visualized. Both globes, extraocular muscles, optic nerves and retrobulbar fat appear unremarkable. VASCULATURE: Unremarkable as visualized. Normal flow voids in the major intracranial circulation. MRI/Brain W/WO Contrast IMPRESSION: No change in the size or signal characteristics of the small 5 mm lesion in the anterior aspect of the right frontal lobe deep white matter. On the current exam, however, it does demonstrate homogeneous enhancement. Differential diagnosis is similar as noted on the prior study and includes microangiopathic gliosis, vasculitis, migraine disease, demyelinating disease, Lyme disease, or low-grade glioma. Conceivably it could be related to some technical differences between the examinations. Electronically Signed: Butch Moreno MD at 0:51 EDT ,
== END 2022-01-24 23:59 | disposition home or self-care (01) ==
LOC: MRI 10:19
PROVIDERS: PCP Family Medicine; Referring Provider Family Medicine; Visit Provider Family Medicine
DX: R90.89 Other abnormal findings on diagnostic imaging of central nervous system (principal)
CPT/HCPCS: 70553; A9575

== ENCOUNTER → 2022-02-26 | Outpatient (CLI) | payer OTHER, SELFPAY ==
--- NOTE | 2022-02-26 08:30 | MRI_ITS ---
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 This report was created using [employer] report generation technology. CONTRAST: IV 13 dOTAREM COMPARISON: Jun 02 2020 5:29pmMR FINDINGS: VERTEBRAE: Unremarkable. No fracture. Normal vertebral bodies and posterior elements. Normal alignment. There is preservation of the normal thoracic kyphosis. No scoliosis. DISCS/SPINAL CANAL/NEURAL FORAMINA: Unremarkable. Normal disc height and morphology. Normal spinal canal and neuroforamina. SPINAL CORD: Unremarkable. Normal in signal and morphology. Normal conus medullaris. SOFT TISSUES: Unremarkable. MRI/Spine Thoracic W/WO Contrast IMPRESSION: Unremarkable MRI of the thoracic spine. Electronically Signed: Kenney Sanchez MD at 15:17 EDT ,
== END | disposition home or self-care (01) ==
PROVIDERS: PCP Family Medicine; Referring Provider Psychiatry & Neurology Neurology; Visit Provider Psychiatry & Neurology Neurology
DX: G37.9 Demyelinating disease of central nervous system, unspecified (principal)
CPT/HCPCS: 72157; A9575

== ENCOUNTER → 2023-01-06 | Outpatient (CLI) | payer OTHER, SELFPAY ==
[2023-01-06 09:48] LABS: Absolute Lymphocyte Count 1.88 X10^3/uL (0.83-4.51); Absolute Neutrophil Count 1.7 X10^3/uL (2.0-7.7); Basophil# 0.04 X10^3/uL; Basophil% 0.9 % (0-1); Eosinophil# 0.05 X10^3/uL; Eosinophils% 1.2 % (0-5); Hematocrit 38.5 % (37-47); Hemoglobin 12.1 g/dL (12.0-15.0); Lymphocyte # 1.88 X10^3/ul (0.83-4.51); Lymphocyte % 44.3 % (19-41); Mean Corp Hgb Conc 31.4 g/dL (32-36); Mean Corpuscular Hgb 27.4 pg (27.0-32.0); Mean Corpuscular Volume 87.1 fL (81-99); Mean Platelet Vol. 11.4 fl (6.2-12.0); Monocyte# 0.57 X10^3/uL; Monocyte% 13.4 % (0-10); NRBC Flagged by Analyzer 0 % (0-5); Neutrophil % 40.2 % (47-70); Platelet Count 293 K/mm3 (150-450); RBC Distribution Width CV 13.1 % (11.6-14.6); RBC Distribution Width SD 41.8 fl (35.1-43.9); Red Blood Count 4.42 M/mm3 (4.2-5.4); White Blood Count 4.2 K/mm3 (4.4-11.0)
[2023-01-06 09:56] LABS: D-Dimer Quantitative (DVT/PE) 0.34 FEU/ug/m (0.27-0.49)
[2023-01-06 10:18] LABS: ALB/GLOB Ratio 1.1 RATIO (0.9-2.4); AST(SGOT) 20 U/L (15-37); Alanine Aminotransfer ALT/SGPT 20 U/L (13-56); Albumin, Serum 3.7 g/dL (3.2-5.0); Alkaline Phosphatase 54 U/L (45-117); Anion Gap 5 (5-15); BUN 13 mg/dL (7-18); BUN/Creat Ratio 17.4 RATIO (10-20); Calcium,Total 9.3 mg/dL (8.5-10.1); Chloride 108 mmol/L (98-107); Cholesterol 122 mg/dL (200); Creatinine, Serum 0.75 mg/dL (0.55-1.02); EST Glomerular Filtration Rate 95 mL/min (>60); Est Glom Filt Rate - Afr Amer 115 mL/min (>60); Globulin 3.4 g/dL (2.2-4.2); Glucose 91 mg/dL (74-106); High Density Lipoprotein 69 mg/dL; Protein, Total 7.1 g/dL (6.4-8.2); Sodium Level 139 mmol/L (136-145); Triglycerides 42 mg/dL; Very Low Density Lipoprotein 8 mg/dL (5-40)
== END | disposition home or self-care (01) ==
LOC: MTLAB 08:42
PROVIDERS: PCP Family Medicine; Referring Provider Nurse Practitioner Family; Visit Provider Nurse Practitioner Family
DX: R07.9 Chest pain, unspecified (principal); Z13.220 Encounter for screening for lipoid disorders
CPT/HCPCS: 36415; 80053; 80061; 85025; 85379

== ENCOUNTER → 2023-02-13 | Outpatient (CLI) | payer OTHER, SELFPAY ==
--- NOTE | 2023-02-13 10:57 | ECHOD_ITS ---
Reason For Study: Chest Pain Procedure This was a 2D Doppler, Color Flow transthoracic echocardiogram. Exam performed in department. Left Ventricle Normal size and thickness. The left ventricular ejection fraction is 65 %. Normal diastology for age. Right Ventricle Normal right ventricle. Atria The left and right atria are normal. Mitral Valve Trivial mitral valve insufficiency. Tricuspid Valve Trivial tricuspid valve insufficiency. Aortic Valve Normal aortic valve. Pulmonic Valve The pulmonic valve is not well visualized. Great Vessels Normal aortic root. Pericardium/Pleural No pericardial effusion. MMode/2D Measurements & Calculations LVIDd: 4.7 cm IVSd: 0.72 cm Ao root diam: 2.9 cm LVIDs: 3.3 cm LVPWd: 0.74 cm LA dimension: 3.3 cm RVDd: 3.6 cm FS: 31.0 % LAV(MOD-bp): 41.1 ml LA A4 area: 17.3 cm2 RA A4 area: 12.9 cm2 LAV(MOD-bp) Indexed: 23.7 ml/m2 LAV(MOD-sp2): 34.5 ml LAV(MOD-sp4): 47.9 ml Time Measurements MV dec time: 0.17 sec Doppler Measurements & Calculations MV E max timothy: 92.0 cm/sec Lat Peak E' Timothy: 25.2 cm/sec Med Peak E' Timothy: 16.4 cm/sec MV A max timothy: 58.1 cm/sec E/E' lat: 3.7 E/E' med: 5.6 MV E/A: 1.6 MV V2 max: 111.0 cm/sec MV P1/2t max timothy: 112.9 cm/sec Ao V2 max: 143.6 cm/sec MV max P.9 mmHg MV P1/2t: 64.7 msec Ao max P.3 mmHg MV V2 mean: 53.3 cm/sec MV dec slope: 510.7 cm/sec2 Ao V2 mean: 105.7 cm/sec MV mean P.4 mmHg MVA(P1/2t): 3.4 cm2 Ao mean P.0 mmHg MV V2 VTI: 31.1 cm Ao V2 VTI: 32.9 cm AV (velocity ratio): 0.78 LV V1 max: 115.3 cm/sec MR max timothy: 432.4 cm/sec PA V2 max: 113.4 cm/sec LV V1 max P.3 mmHg MR max P.8 mmHg LV V1 mean P.0 mmHg LV V1 mean: 80.7 cm/sec LV V1 VTI: 25.6 cm TR max timothy: 271.8 cm/sec TR max P.6 mmHg ECHO/Echo Complete Interpretation Summary The left ventricular ejection fraction is 65 %. Ordering Physician: Bessie Mathur Referring Physician: Yayo Dasilva Performed By: Sánchez Forbes RCS
== END | disposition home or self-care (01) ==
PROVIDERS: PCP Family Medicine; Referring Provider Internal Medicine Cardiovascular Disease; Visit Provider Internal Medicine Cardiovascular Disease
DX: R07.9 Chest pain, unspecified (principal)
CPT/HCPCS: 93306

== ENCOUNTER → 2023-02-17 | Outpatient (CLI) | payer OTHER, SELFPAY ==
--- NOTE | 2023-02-17 09:59 | STE_ITS ---
Reason For Study: CHEST PAIN Stress Results Protocol: Lul Protocol Maximum Predicted HR: 188 bpm Target HR: 160 bpm % Maximum Predicted HR: 92 % DurationHeart Rate Stage (mm:ss) (bpm) BP Comment BASELINE 68 124/72 STAGE 1 3:00 100 118/80 STAGE 2 3:00 114 122/76 STAGE 3 3:00 151 152/60 STAGE 4 3:00 173 160/80SOB, NO CHEST PAIN RECOVERY 100 120/82 Stress Duration: 12:00 mm:ss Maximum Stress HR: 173 bpm Baseline Echocardiogram Findings Stress Echo Wall motion Data Resting WM Intermediate WM Stress WM Resting Wall Motion Wall Motion Stress No regional wall motion All segments Hyperkinetic. abnormalities noted. EKG Data The baseline ECG displays normal sinus rhythm. No arrhythmias noted. During stress, there were no ST or T wave changes noted to suggest ischemia. ECHO/Stress Test Echo w/o Contrast Interpretation Summary Excellent exercise capacity. No ECG ischemic changes with exercise. Normal augmentation of all left ventricular wall segments with exercise. Negative stress echo. Ordering Physician: Bessie Mathur Referring Physician: Bessie Mathur Performed By: Kandace Kaufman RCS
== END | disposition home or self-care (01) ==
LOC: CVS 09:59
PROVIDERS: PCP Family Medicine; Referring Provider Internal Medicine Cardiovascular Disease; Visit Provider Internal Medicine Cardiovascular Disease
DX: R07.9 Chest pain, unspecified (principal)
CPT/HCPCS: 93017; 93350

== ENCOUNTER → 2023-07-29 | Outpatient (CLI) | payer OTHER, SELFPAY ==
[2023-07-29 10:37] LABS: Vitamin B12 411 pg/mL (211-911)
== END | disposition home or self-care (01) ==
LOC: MTLAB 09:12
PROVIDERS: PCP Family Medicine; Referring Provider Nurse Practitioner Family; Visit Provider Nurse Practitioner Family
DX: R53.83 Other fatigue (principal)
CPT/HCPCS: 36415; 82607

== ENCOUNTER → 2024-02-11 | Outpatient (CLI) | payer OTHER, SELFPAY ==
[2024-02-11 12:25] LABS: Color, Urine Straw (Yellow); Glucose, Dipstick Normal (Normal); Hematocrit 37.6 % (37-47); Hemoglobin 11.9 g/dL (12.0-15.0); Ketone-Dipstick Negative (Negative); Leukocyte Esterase-Dipstick Negative /ul (Negative); Mean Corp Hgb Conc 31.6 g/dL (32-36); Mean Corpuscular Hgb 27.4 pg (27.0-32.0); Mean Corpuscular Volume 86.4 fL (81-99); Mean Platelet Vol. 11.2 fl (6.2-12.0); Nitrite-Dipstick Negative (Negative); Occult Blood-Urine Negative /ul (Negative); Platelet Count 294 K/mm3 (150-450); Protein-Dipstick Negative (Negative); RBC Distribution Width CV 12.8 % (11.6-14.6); RBC Distribution Width SD 40.2 fl (35.1-43.9); Red Blood Count 4.35 M/mm3 (4.2-5.4); Specific Gravity, Urine 1.005 (1.002-1.030); Urine Bilirubin Dipstick Negative (Negative); Urine Clarity Clear (Clear); Urine Urobilinogen Normal (Normal); White Blood Count 4.7 K/mm3 (4.4-11.0)
[2024-02-11 12:39] LABS: Erythrocyte Sedimentation Rate 1 mm/hr (0-30)
[2024-02-11 13:21] LABS: ALB/GLOB Ratio 1.1 RATIO (0.9-2.4); AST(SGOT) 18 U/L (15-37); Alanine Aminotransfer ALT/SGPT 22 U/L (13-56); Albumin, Serum 3.8 g/dL (3.2-5.0); Alkaline Phosphatase 51 U/L (45-117); Anion Gap 3 (5-15); BUN 10 mg/dL (7-18); BUN/Creat Ratio 12.5 RATIO (10-20); CRP < 2.90 mg/L (0.0-3.0); Chloride 109 mmol/L (98-107); EST Glomerular Filtration Rate 87 mL/min (>60); Est Glom Filt Rate - Afr Amer 106 mL/min (>60); Globulin 3.6 g/dL (2.2-4.2); Glucose 93 mg/dL (74-106); Protein, Total 7.4 g/dL (6.4-8.2); Sodium Level 139 mmol/L (136-145)
== END | disposition home or self-care (01) ==
LOC: MTLAB 10:33
PROVIDERS: PCP Family Medicine; Referring Provider Internal Medicine Gastroenterology; Visit Provider Internal Medicine Gastroenterology
DX: R10.9 Unspecified abdominal pain (principal)
CPT/HCPCS: 36415; 80053; 81002; 85027; 85652; 86140

== ENCOUNTER → 2024-07-08 | Outpatient (CLI) | payer OTHER, SELFPAY ==
--- NOTE | 2024-07-08 08:19 | CT_ITS ---
STUDY: CT ABDOMEN AND PELVIS WITH CONTRAST REASON FOR EXAM: Female, 33 years old. Abdominal pain (RLQ)/pelvic pain. Diarrhea. RADIATION DOSAGE (If Supplied By Facility): CTDIvol = ( 12.27 ) mGy, DLP = ( 1026.46 ) mGycm TECHNIQUE: Transaxial images were obtained from the dome of the diaphragm to the symphysis pubis with oral contrast. Oral and amp; IV Readi-CAT and amp; 100mL Isovue-370 was administered. Sagittal and coronal images were reconstructed. Individualized dose optimization techniques were used for this CT. COMPARISON: None. FINDINGS: The visualized lung bases are unremarkable. The visualized portions of the heart are within normal limits. Normal liver. The patient is status post cholecystectomy. Normal spleen. Normal pancreas. Normal bilateral adrenal glands. Fullness of the right renal pelvis although there is no evidence of hydronephrosis. Normal left kidney. Normal visualized stomach. Normal small intestine. Large amount of fecal material is seen in the rectosigmoid colon. Sigmoid diverticulosis. The appendix is visualized and appears normal. Normal abdominal aorta. Normal inferior vena cava. Normal retroperitoneum. Normal urinary bladder. There is a 1.6 cm follicle in the left ovary. Normal abdominal wall. Normal osseous structures. CT/Abdomen/Pelvis WITH Contrast IMPRESSION: 1.6 cm follicle in the left ovary. Sigmoid diverticulosis. Status post cholecystectomy. Electronically Signed: Stevie Narayan MD at 14:02 EDT ,
== END | disposition home or self-care (01) ==
PROVIDERS: PCP Family Medicine; Referring Provider Registered Nurse; Visit Provider Registered Nurse
DX: R10.31 Right lower quadrant pain (principal); R10.2 Pelvic and perineal pain
CPT/HCPCS: 74177; Q9967; A4216

== ENCOUNTER → 2024-08-24 | Outpatient (CLI) | payer OTHER, SELFPAY ==
--- NOTE | 2024-08-24 09:03 | RAD_ITS ---
INDICATION: sitz marker EXAMINATION/TECHNIQUE: X-RAY - XR Abdomen 1 View COMPARISON: No relevant prior comparison study available FINDINGS: BOWEL GAS PATTERN: Non-obstructive. Sitz markers are not seen. FREE AIR: Not assessed on a single supine view. ORGANOMEGALY: Not seen. CALCIFICATIONS: No abnormal calcifications observed. LOWER CHEST: No acute pathology. BONES AND SOFT TISSUES: No acute pathology. RAD/Abdomen Single View IMPRESSION: 1. Non-obstructive bowel gas pattern. 2. Sitz markers are not visualized. Electronically Signed: Romie Soriano MD at 12:45 EDT ,
[2024-08-24 10:23] LABS: Erythrocyte Sedimentation Rate < 1 mm/hr (0-30)
[2024-08-24 10:53] LABS: ALB/GLOB Ratio 1.1 RATIO (0.9-2.4); AST(SGOT) 17 U/L (15-37); Alanine Aminotransfer ALT/SGPT 15 U/L (13-56); Albumin, Serum 3.9 g/dL (3.2-5.0); Alkaline Phosphatase 55 U/L (45-117); Anion Gap 5 (5-15); BUN 15 mg/dL (7-18); BUN/Creat Ratio 17.2 RATIO (10-20); CRP < 2.90 mg/L (0.0-3.0); Chloride 104 mmol/L (98-107); Creatinine, Serum 0.87 mg/dL (0.55-1.02); EST Glomerular Filtration Rate 79 mL/min (>60); Est Glom Filt Rate - Afr Amer 96 mL/min (>60); Globulin 3.7 g/dL (2.2-4.2); Glucose 88 mg/dL (74-106); Potassium 3.8 mmol/L (3.5-5.1); Protein, Total 7.6 g/dL (6.4-8.2); Sodium Level 136 mmol/L (136-145)
[2024-08-29 16:07] LABS: Anti-Centromere B Ab <0.2 AI (0.0-0.9); Anti-Chromatin <0.2 AI (0.0-0.9); Anti-Jo <0.2 AI (0.0-0.9); Anti-Scleroderma-70 AB <0.2 AI (0.0-0.9); Anti-dsDNA Ab 5 IU/mL (0-9); Beef <0.10 kU/L (Class 0); Chocolate <0.10 kU/L (Class 0); Codfish <0.10 kU/L (Class 0); Corn <0.10 kU/L (Class 0); Egg, Whole <0.10 kU/L (Class 0); Milk (Cow) <0.10 kU/L (Class 0); Mussels <0.10 kU/L (Class 0); Peanut <0.10 kU/L (Class 0); Pork <0.10 kU/L (Class 0); RNP Ab <0.2 AI (0.0-0.9); SJOGREN'S Anti-SS-A test < 0.2 AI (0.0-0.9); SJOGREN'S Anti-SS-B test < 0.2 AI (0.0-0.9); Salmon <0.10 kU/L (Class 0); Shrimp <0.10 kU/L (Class 0); Smith Ab <0.2 AI (0.0-0.9); Soybean <0.10 kU/L (Class 0); Tuna <0.10 kU/L (Class 0); Wheat <0.10 kU/L (Class 0)
[2024-08-30 12:08] LABS: ACCA 10 units (0-90); ALCA 9 units (0-60); AMCA 315 units (0-100); Cytoplasmic Ab (C-ANCA) <1:20 titer (Neg:<1:20); Endomysial Antibody IgA Negative (Negative); Gastrin, Serum 81 pg/mL (0-115); IgG, Quant 1370 mg/dL (586-1602); Immunoglobulin A 112 mg/dL (87-352); Immunoglobulin E 25 IU/mL (6-495); Immunoglobulin G, Subclass 1 812 mg/dL (248-810); Immunoglobulin G, Subclass 2 288 mg/dL (130-555); Immunoglobulin G, Subclass 3 58 mg/dL (15-102); Immunoglobulin G, Subclass 4 23 mg/dL (2-96); Immunoglobulin M 190 mg/dL (26-217); Perinuclear Ab (P-ANCA) <1:20 titer (Neg:<1:20); gASCA 20 units (0-50); t-Transglutaminase IgA <2 U/mL (0-3)
== END | disposition home or self-care (01) ==
LOC: MTLAB 08:38
PROVIDERS: PCP Family Medicine; Referring Provider Internal Medicine Gastroenterology; Visit Provider Internal Medicine Gastroenterology
DX: K59.9 Functional intestinal disorder, unspecified (principal); K21.9 Gastro-esophageal reflux disease without esophagitis
CPT/HCPCS: 36415; 74018; 80053; 82784; 82785; 82787; 82941; 83516; 85652; 86003; 86005; 86036; 86037; 86140; 86225; 86235; 86255; 86671

== ENCOUNTER → 2024-08-26 | Outpatient (CLI) | payer OTHER, SELFPAY ==
--- NOTE | 2024-08-26 09:32 | RAD_ITS ---
STUDY: X-RAY - ABDOMEN/PELVIS REASON FOR EXAM: Female, 34 years old. Sitz day 5 TECHNIQUE: Single AP view of the abdomen / pelvis. COMPARISON: August 24, 2024 FINDINGS: Normal visualized lung bases. There is an unremarkable bowel gas pattern. No Sitzmarks markers visualized. Increased stool in the left colon noted. The visualized liver, spleen and kidneys are grossly normal in size and morphology. Normal soft tissue structures. Normal visualized osseous structures. RAD/Abdomen Single View IMPRESSION: Increase stool left colon. No Sitzmarks markers visualized. Electronically Signed: Vick Lopez MD at 0:16 EDT ,
== END | disposition home or self-care (01) ==
PROVIDERS: PCP Family Medicine; Referring Provider Internal Medicine Gastroenterology; Visit Provider Internal Medicine Gastroenterology
DX: K59.9 Functional intestinal disorder, unspecified (principal); K21.9 Gastro-esophageal reflux disease without esophagitis
CPT/HCPCS: 74018

== ENCOUNTER → 2024-10-01 | Outpatient (CLI) | payer OTHER, SELFPAY ==
--- NOTE | 2024-10-01 12:21 | NM_ITS ---
CLINICAL: 34-year-old female with history of chronic abdominal pain. SEMI-SOLID PHASE 99m Tc SULFUR COLLOID GASTRIC EMPTYING STUDY COMPARISON: None available FINDINGS: The patient was administered 1.2 mCi of 99m Tc sulfur colloid mixed with oatmeal and consumed per os. Image acquisitions in the anterior-posterior projections were obtained for 60 minutes. There is prompt visualization of the stomach. There is no gastroesophageal reflux identified. First order kinetics are maintained throughout the duration of the acquisitions. The T ? raw data emptying was calculated to be 58.37 minutes, (Normal: 12-56 minutes). NM/Gastric Emptying Study IMPRESSION: 1. ABNORMAL 99m Tc sulfur colloid semi-solid phase (oatmeal) gastric emptying imaging examination. A. There is mildly delayed semi-solid phase gastric emptying compared to normal controls with maintained first order kinetics throughout all components of the examination. (Carmen et al, J Nucl Med Tech 38: 186, 2010). Electronically Signed: Ruben Claros DO at 9:00 EST ,
== END | disposition home or self-care (01) ==
LOC: NM 12:18
PROVIDERS: PCP Family Medicine; Referring Provider Internal Medicine Gastroenterology; Visit Provider Internal Medicine Gastroenterology
DX: K59.9 Functional intestinal disorder, unspecified (principal); K21.9 Gastro-esophageal reflux disease without esophagitis
CPT/HCPCS: 78264; A9541

== ENCOUNTER → 2024-10-12 | Outpatient (CLI) | payer OTHER, SELFPAY ==
--- NOTE | 2024-10-12 09:31 | MRI_ITS ---
STUDY: MR ENTEROGRAPHY WITH CONTRAST REASON FOR EXAM: Female, 34 years old. K50.90 - Crohn''s disease, unspecified, without complications TECHNIQUE: Multipulse sequence MRI performed with IV contrast according to standard MR enterography protocol following administration of oral contrast for maximal bowel distention. Images were obtained from the dome of the diaphragm to the symphysis pubis. IV 13ml clariscan was administered intravenously. TECHNICAL QUALITY: Image Quality: Satisfactory Small Bowel Distension: Adequate. COMPARISON: CT of abdomen and pelvis dated July 08, 2024 FINDINGS: FINDINGS: Bowel: Bowel wall thickening: Absent. Skip lesions: None. Vascularity: Normal. Enhancement: Normal. Fistula: None. Abscess: None. Other Findings: The visualized lung bases are unremarkable. The visualized portions of the heart are within normal limits. Normal spleen. Normal pancreas. Normal bilateral adrenal glands. Right kidney: Chronic pelviectasis and prominence of the extrarenal portion of the system either congenital/developmental or related to UPJ stenosis. This is unchanged from July 08, 2024 study. Normal left kidney. Normal contrast opacified bowel loops. Normal visualized stomach. Normal small intestine. Normal colon. No demonstrated colonic diverticula on this study. There is non-visualization of the appendix. No demonstrated bowel dilatation or obstruction. No visualized bowel wall thickening or stricturing. Normal abdominal aorta. Normal inferior vena cava. Normal retroperitoneum. Normal urinary bladder. Unremarkable uterus and ovaries. Normal abdominal wall. Normal osseous structures. MRI/Enterography Abd/Pel IMPRESSION: 1. Normal MR enterography. 2. No visualized bowel wall thickening or stricturing or skipped lesions MR enterography References: Active bowel inflammation causes restricted diffusion on diffusion-weighted images which appears as bright signal. Electronically Signed: Jacob Kenney MD at 15:50 EST ,
[2024-10-12 10:03] VITALS: BP 117/66; PULSE 60; RESP 18; O2SAT 99; BMI 21.7
[2024-10-12] MEDS: Glucagon 1 MG/ML Syringe IV (10:58)
[2024-10-12] MEDS: 0.9% Saline Lock 10 ML Syringe IV (10:58)
[2024-10-12 11:15] VITALS: BP 99/72; PULSE 60; RESP 18; O2SAT 99
== END | disposition home or self-care (01) ==
LOC: MRI 09:16
PROVIDERS: PCP Family Medicine; Referring Provider Student in an Organized Health Care Education/Training Program; Visit Provider Student in an Organized Health Care Education/Training Program
DX: K50.90 Crohn's disease, unspecified, without complications (principal)
CPT/HCPCS: 74183; 96374; A9575; A4216; J1610

== ENCOUNTER 2024-11-19 14:21 | Day surgery (SDC) | payer OTHER, SELFPAY ==
--- NOTE | 2024-11-17 15:02 | PAT.ANESEVAL ---
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 When Was Last Pacemaker Check QUESTION #4 FULL TEXT: You/Your Family Experience fever (hyperthermia) with Anesthesia Last Oral Intake Last Oral intake: Last Oral Intake NPO since Meds taken in AM with sips of water? Meds patient instructed to take am of surgery PONV PONV - facilities plant engineer: PONV - facilities plant engineer Female Yes 11/17/24 12:26 HX of Motion Sickness No 11/17/24 12:26 HX of N/V After Surgery No 11/17/24 12:26 Non-Smoker Yes 11/17/24 12:26 Duration of Surgery greater No 11/17/24 12:26 than 60 minutes Number of Risk Factors 2 11/17/24 12:26 PONV Score Moderate Risk 11/17/24 12:26 Height & Weight Height & Weight: Anesthesia: Height & Weight Height 5 ft 6 in 10/12/24 10:03 Respiratory Assessment Respiratory Assessment - facilities plant engineer: Respiratory Tract Infection Hx - facilities plant engineer Hx Respiratory Tract Infection No 11/17/24 12:26 STOP Sleep Apnea STOP Sleep Apnea - facilities plant engineer: STOP Sleep Apnea - facilities plant engineer Hx Hypertension No 11/17/24 12:26 Hx Sleep Apnea No 11/17/24 12:26 CPAP BIPAP Do you snore loudly (louder No 11/17/24 12:26 than talking or can be heard Do you often feel tired/ No 11/17/24 12:26 fatigued/ sleepy during daytime? Has anyone observed you stop No 11/17/24 12:26 breathing during sleep? STOP Results Negative 11/17/24 12:26 QUESTION #5 FULL TEXT : Do you snore loudly (louder than talking or can be heard through closed doors)? 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 Specify any problems Hx of Preganancy in last 3 N/A 11/17/24 12:26 Months Nurse Filling Out Transfusion NBUCHER 11/17/24 12:26 & Questions: Date: 11/17/24 11/17/24 12:26 Time: 12:27 11/17/24 12:26 Patient unable to answer at this time (ie. confused, unrespo /Reproduction History /Reproductive History - facilities plant engineer: /Reproductive Hx- facilities plant engineer Hx Now No 11/17/24 12:26 Gestational Age (in weeks): EDC: Hx Hx Para Hx Section SAB No 11/17/24 12:26 Active Medications Active Medications: Current Medications Generic Name Dose Route Start Last Admin Trade Name Freq PRN Reason Stop Dose Admin Sodium Chloride 10 - 40 ml 10/12/24 10:07 0.9% Saline Lock 10 Ml Syringe IV UD PRN SALINE FLUSH PFSH Medical History History of hiatal hernia Non-smoker History of echocardiogram Cardiology follow-up encounter Rectal pain Constipation Irritable bowel syndrome (IBS) Abdominal pain Diarrhea GERD (gastroesophageal reflux disease) Functional bowel disorder Nonrheumatic mitral (valve) prolapse Pulmonary hypertension Fatigue Nausea Epigastric cramping Gallbladder problem Lymphadenitis Abnormal WBC count Palpable lymph node Thoracic back pain Neck pain T2 hyperintense focus present in brainstem on magnetic resonance imaging Pain in hip Headache Chest pain Abnormal biliary HIDA scan Anxiety Allergy/AdvReac Type Severity Reaction Status Date / Time No Known Allergies Allergy Verified 11/17/24 12:25 Family History Father Diabetes Hypertension Hyperlipidemia Sister Thyroid disorder Mother MS (multiple sclerosis) Grandmother SVT (supraventricular tachycardia) S/P ablation of ventricular arrhythmia Grandfather Myocardial infarction, Onset Age: 79 Colon cancer Surgical History History of colonoscopy History of esophagogastroduodenoscopy (EGD) Hx of dilation and curettage (~04/2021) S/P laparoscopic cholecystectomy (~2020) History of wisdom tooth extraction (~05/2016) Social History Smoking Status: Never smoker alcohol intake: current details: occasional substance use type: does not use caffeine: Yes Type: coffee Number of servings: 1 Audit: Pertinent Findings Pertinent Findings EKG Perinent findings: NSR incomplete right bundle Stress test pertinent findings: normal stress echo. 02/16 Echo (EF%) pertinent findings: 65%; no valvular disease 02/16 Recommendation Anesthesia Recommendation Anesthesia recommendation: OPTIMIZED for anesthesia
[2024-11-19] VITALS (7 sets, daily range): BP systolic 91–126; BP diastolic 54–84; PULSE 61–72; RESP 16; TEMP 36.6–36.7; O2SAT 100; BMI 22.6
[2024-11-19 14:49] LABS: Internal QC Validated? YES +Cl - CLEAR BKGD; Pregnancy, Urine Negative Negative
--- NOTE | 2024-11-19 14:59 | PRE.ANES_ITS ---
ASA Classification* ASA Classification ASA Classification: 2 Assessment & Plan Anesthesia* Anesthesia Assessment Anesthesia Assessment: Discussed sedation and/or anesthesia options, risks, benefits, and alternatives with patient/parents/legal guardian/POA. Questions invited. The patient/parents/legal guardian/POA seems to understand and agrees to proceed with anesthesia plan. Reviewed the physical assessment, medical history, allergy history and patient home medications list prior to surgery/procedure/anesthetic and documented any changes. Performed airway and anesthesia risk assessments. Anesthesia Type Anesthesia Type: MAC History Source History Obtained from:: Patient Anesthesia Focused Assessment* Temperature: 98 F Pulse Rate: 69 Blood Pressure: 126/84 Respiratory Rate: 16 Pulse Ox: 100 Airway Assessment Mouth opens: >3 cm Mallampati Score: II Teeth Condition: Intact Neck Range of motion (ROM): Full ROM Focused Labs Anesthesia Preop lab: CBC WBC 4.7 K/mm3 (4.4-11.0) 02/11/24 10:35 RBC 4.35 M/mm3 (4.2-5.4) 02/11/24 10:35 Hgb 11.9 g/dL (12.0-15.0) L 02/11/24 10:35 Hct 37.6 % (37-47) 02/11/24 10:35 Plt Count 294 K/mm3 (150-450) 02/11/24 10:35 CHEMISTRY Potassium 3.8 mmol/L (3.5-5.1) 08/24/24 08:42 Sodium 136 mmol/L (136-145) 08/24/24 08:42 Magnesium 2.2 mg/dL (1.6-2.6) 03/09/21 14:58 BUN 15 mg/dL (7-18) 08/24/24 08:42 Creatinine 0.87 mg/dL (0.55-1.02) 08/24/24 08:42 Glucose 88 mg/dL (74-106) 08/24/24 08:42 TSH 1.44 uIU/mL (0.358-3.74) 03/09/21 14:58 COAG Urine Test Negative Negative 11/19/24 14:30 Pre-Assessment Diagnosis/Proposed Procedure Planned Operative Procedure(s): CSCOPE Anesthesia History Anesthesia History - conference interpreter: Anesthesia History - conference interpreter Hx Hospitalization No 11/17/24 12:26 Any Problems With Anesthesia No 11/17/24 12:26 Cholinesterase deficiency No 11/17/24 12:26 You/Your Family Experience No 11/17/24 12:26 fever (hyperthermia) with Relationship Recent Exposure to Contagious No 11/19/24 14:38 Disease Does patient have nerve No 11/17/24 12:26 stimulator Patient instructed to have device shut off --Does patient have Pacemaker No 11/19/24 14:38 or ICD? When Was Last Pacemaker Check QUESTION #4 FULL TEXT: You/Your Family Experience fever (hyperthermia) with Anesthesia Last Oral Intake Last Oral intake: Last Oral Intake NPO since 12:00 11/19/24 14:38 Meds taken in AM with sips of water? Meds patient instructed to take am of surgery PONV PONV - conference interpreter: PONV - conference interpreter Female Yes 11/17/24 12:26 HX of Motion Sickness No 11/17/24 12:26 HX of N/V After Surgery No 11/17/24 12:26 Non-Smoker Yes 11/17/24 12:26 Duration of Surgery greater No 11/17/24 12:26 than 60 minutes Number of Risk Factors 2 11/17/24 12:26 PONV Score Moderate Risk 11/17/24 12:26 Height & Weight Height & Weight: Anesthesia: Height & Weight Height 5 ft 6 in 11/19/24 14:38 Weight: 63.503 kg 11/19/24 14:38 Body Mass Index (BMI) 22.6 11/19/24 14:38 Respiratory Assessment Respiratory Assessment - conference interpreter: Respiratory Tract Infection Hx - conference interpreter Hx Respiratory Tract Infection No 11/17/24 12:26 STOP Sleep Apnea STOP Sleep Apnea - conference interpreter: STOP Sleep Apnea - conference interpreter Hx Hypertension No 11/17/24 12:26 Hx Sleep Apnea No 11/17/24 12:26 CPAP BIPAP Do you snore loudly (louder No 11/17/24 12:26 than talking or can be heard Do you often feel tired/ No 11/17/24 12:26 fatigued/ sleepy during daytime? Has anyone observed you stop No 11/17/24 12:26 breathing during sleep? STOP Results Negative 01/22/25 12:26 QUESTION #5 FULL TEXT : Do you snore loudly (louder than talking or can be heard through closed doors)? 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 Specify any problems Hx of Preganancy in last 3 N/A 11/17/24 12:26 Months Nurse Filling Out Transfusion NBUCHER 11/17/24 12:26 & Questions: Date: 11/17/24 11/17/24 12:26 Time: 12:27 11/17/24 12:26 Patient unable to answer at this time (ie. confused, unrespo /Reproduction History /Reproductive History - conference interpreter: /Reproductive Hx- conference interpreter Hx Now No 11/17/24 12:26 Gestational Age (in weeks): EDC: Hx Hx Para Hx Section SAB No 11/17/24 12:26 Active Medications Active Medications: Current Medications Generic Name Dose Route Start Last Admin Trade Name Freq PRN Reason Stop Dose Admin Sodium Chloride 10 - 40 ml 10/12/24 10:07 0.9% Saline Lock 10 Ml Syringe IV UD PRN SALINE FLUSH PFSH Medical History History of hiatal hernia Non-smoker History of echocardiogram Cardiology follow-up encounter Rectal pain Constipation Irritable bowel syndrome (IBS) Abdominal pain Diarrhea GERD (gastroesophageal reflux disease) Functional bowel disorder Nonrheumatic mitral (valve) prolapse Pulmonary hypertension Fatigue Nausea Epigastric cramping Gallbladder problem Lymphadenitis Abnormal WBC count Palpable lymph node Thoracic back pain Neck pain T2 hyperintense focus present in brainstem on magnetic resonance imaging Pain in hip Headache Chest pain Abnormal biliary HIDA scan Anxiety Home Medications ?Medication ?Instructions ?Recorded ?Last Taken ?Type NK 11/18/24 Unknown History Allergy/AdvReac Type Severity Reaction Status Date / Time No Known Allergies Allergy Verified 11/19/24 14:37 Family History Father Diabetes Hypertension Hyperlipidemia Sister Thyroid disorder Mother MS (multiple sclerosis) Grandmother SVT (supraventricular tachycardia) S/P ablation of ventricular arrhythmia Grandfather Myocardial infarction, Onset Age: 79 Colon cancer Surgical History History of colonoscopy History of esophagogastroduodenoscopy (EGD) Hx of dilation and curettage (~04/2021) S/P laparoscopic cholecystectomy (~2020) History of wisdom tooth extraction (~05/2016) Social History Smoking Status: Never smoker alcohol intake: current details: occasional substance use type: does not use caffeine: Yes Type: coffee Number of servings: 1 Review of Systems (Anesthesia) ROS Narrative System reviewed and no additional complaints, except as documented. Physical Exam Const Orientation / Consciousness: awake
--- NOTE | 2024-11-19 15:30 | COLBX_PTH ---
PATIENT: LISSETH WATTS LOC: EN U#:[id number] AGE/SX: 34/F ROOM: RE11/19/[address]: Dr. Rolando Rucker DO : 1990 BED: DIS: 11/19/2024 SPEC #: [id number] RECD: 11/19/24 17:18 STATUS: AGNES MORALESLopez #: [id number] GAVI: 11/19/24 15:[address]: Rolando Rucker DEPT: SURGICAL PATHOLOGY RECD BY: Etelvina Valerio ENTERED: 11/22/24 09:51 SP TYPE: COLON BX OTHR DR: Dr. Yayo Dasilva MD Tissues: A - Ileum, NOS B - COLON BIOPSY Procedures: Surgery Specimen Level IV HEADER OPERATION: Colonoscopy, biopsy PRE-OP DIAGNOSIS: Crohn's disease, functional bowel disorder, GERD TISSUE SUBMITTED: A- Terminal ileum biopsy, B- Random colon biopsy MICROSCOPIC DIAGNOSIS A. Terminal ileum, biopsy: Fragments of small intestinal mucosa, no pathologic diagnosis. See comment. B. Colon, random biopsy: Fragments of colonic mucosa, no pathologic diagnosis. LINDA. 11/23/2024 COMMENT A. Prominent lymphoid aggregates are noted. MICROSCOPIC DESCRIPTION Slides are reviewed. GROSS DESCRIPTION A. Received in fixative is one container labeled with the patient's name and designated Terminal ileum biopsy. The specimen consists of two irregular fragments of light willoughby soft tissue that in aggregate measure 0.7 x 0.4 x 0.1 cm. The specimen is totally submitted in one cassette. B. Received in fixative is one container labeled with the patient's name and designated Random colon biopsy. The specimen consists of multiple irregular fragments of light willoughby soft tissue that in aggregate measure 1.6 x 0.5 x 0.2 cm. The specimen is totally submitted in one cassette. 11/22/2024 TC:4 CPT:18082n0
--- NOTE | 2024-11-19 15:31 | HP.PCM_ITS ---
HPI - General General Date of Admission: 11/19/24 Date of Service: 11/19/24 Chief Complaint: Abdominal pain and Crohn's disease HPI Narrative LISSETH WATTS, is a 34 F who presents for the evaluation of ongoing right lower quadrant abdominal pain and positive antibodies for Crohn's disease. abd/pelvis 07.08.24 1.6 cm follicle in the left ovary. Sigmoid diverticulosis.Status post cholecystectomy. *BGI established 08.17.24 pt reports she is establishing care due a hx of GERD and R-sided abdominal pain. Pt reports daily bowel movements, but sometimes feels like she has to go, but is unable. Pt reports that she is bloated everyday, whether or not she has eaten. SITZ day 3: sitz markers are not visualized day 5: sitz markers are not visualized GET 10.01.24 abnormal 58.37 minutes MR enterography 10.12.24 1. Normal MR enterography. 2. No visualized bowel wall thickening or stricturing or skipped lesions OV 11.18.24 pt reports continued symptoms from previous visit. Pt has EGD and colonoscopy tomorrow. Is here to discuss test results. [facility] Medical History History of hiatal hernia Non-smoker History of echocardiogram Cardiology follow-up encounter Rectal pain Constipation Irritable bowel syndrome (IBS) Abdominal pain Diarrhea GERD (gastroesophageal reflux disease) Functional bowel disorder Nonrheumatic mitral (valve) prolapse Pulmonary hypertension Fatigue Nausea Epigastric cramping Gallbladder problem Lymphadenitis Abnormal WBC count Palpable lymph node Thoracic back pain Neck pain T2 hyperintense focus present in brainstem on magnetic resonance imaging Pain in hip Headache Chest pain Abnormal biliary HIDA scan Anxiety Home Medications ?Medication ?Instructions ?Recorded ?Last Taken ?Type NK 11/18/24 Unknown History Allergy/AdvReac Type Severity Reaction Status Date / Time No Known Allergies Allergy Verified 11/19/24 14:37 Family History Father Diabetes Hypertension Hyperlipidemia Sister Thyroid disorder Mother MS (multiple sclerosis) Grandmother SVT (supraventricular tachycardia) S/P ablation of ventricular arrhythmia Grandfather Myocardial infarction, Onset Age: 79 Colon cancer Surgical History History of colonoscopy History of esophagogastroduodenoscopy (EGD) Hx of dilation and curettage (~04/2021) S/P laparoscopic cholecystectomy (~2020) History of wisdom tooth extraction (~05/2016) Social History Smoking Status: Never smoker alcohol intake: current details: occasional substance use type: does not use caffeine: Yes Type: coffee Number of servings: 1 ROS Constitutional Constitutional: Denies fatigue, fever(s), poor appetite, weight gain or weight loss Gastrointestinal Gastrointestinal: Denies belching, bloating, change in bowel habits, change in stool character, chewing difficulty, coffee ground emesis, constipation, cramping, diarrhea, dyspepsia, dysphagia, early satiety, excessive flatus, fecal incontinence, heartburn, hematemesis, hematochezia, hemorrhoids, loose stools, melena, nausea, odynophagia, rectal bleeding, tenesmus, vomiting or weight c hanges Vital Signs Vital Signs Vital Signs: 11/19/24 14:38 11/19/24 14:38 11/19/24 15:01 Temperature 98 F 98 F Temperature Source Temporal Pulse Rate 69 69 Respiratory Rate 16 16 Respiratory Pattern Normal Blood Pressure 126/84 H 126/84 H Blood Pressure Mean 98 Blood Pressure Source Monitor Blood Pressure Position Semi-Fowlers Blood Pressure Location Left Arm Pulse Ox 100 100 Oxygen Delivery Method Room Air Weight Weight: 140 lb Body Mass Index (BMI) 22.6 Physical Exam Const alert, oriented x3, no apparent distress and healthy appearing General Appearance: cooperative GI normal to inspection, nondistended, normoactive bowel sounds, soft to palpation, non-tender and non-distended Percussion: normal to percussion Rectal Exam: deferred Results Lab / Micro Data Labs: Laboratory Results - last 24 hr 11/19/24 14:30: Urine Test Negative Assessment & Plan Assessment/Plan (1) Crohn disease: PLAN: (1) Abdominal pain: Plan: Abdominal pain likely secondary to gastroparesis. Also in the setting of possible stricturing or narrowing in the small bowel secondary to Crohn's disease. (2) Functional bowel disorder: Status: Acute Plan: She is for colonoscopy tomorrow. Further recommendation to follow after that. (3) GERD (gastroesophageal reflux disease): Status: Acute Plan: He also has a very pleasant 33-year-old with past medical history of functional bowel disorder and possible chronic idiopathic constipation. She comes in after getting all her 7-week episode of the right lower quadrant pain not associated limit movement, eating annual improvement with bowel movements. She did have a CT scan abdomen pelvis that showed some stool in the rectal vault along with stool throughout the entire colon without dilation. Also on the imaging showed a lot of gas in her small bowel and a smaller contracted stomach along with a 4 large bladder. She has a history of microcalcifications that was seen cause her to get the every 6 month imaging. She has had 2 miscarriages in the past. She is not a smoker. She does have a twin sister without any medical problems. She is status post cholecystectomy without diarrhea. She has not had any other specific history other than silent reflux disease that was seen on the previous upper endoscopy. She has been on 40 mg of omeprazole since her upper endoscopy and when she tries to be off all of the medicine she gets heartburn or she can feel acid in her chest. She has never had any functional studies and to locate her GI motility. She has a new diagnosis for something will be gastroparesis, small bacterial overgrowth, underlying vasculitis, less likely inflammatory bowel disease. She will undergo biochemical testing along with allergy testing and imaging studies such as gastric emptying study and a sits marker test. I will.
--- NOTE | 2024-11-19 16:07 | PCM.POST.ANE ---
Anesthesia: Postop Eval I Current Vital Signs Temperature: 98.1 F Pulse Rate: 72 Blood Pressure: 91/58 Respiratory Rate: 16 Pulse Ox: 100 Assessment Airway patent: Yes Spontaneous unlabored respirations: Yes nausea: No Vomiting: No Anesthesia Complication: No Fluid Hydration Crystalloid volume administer (ml): 30 Total IV fluid infused: 30 Progress Note Anesthesia document: Postop Eval 1 completed: Yes
--- NOTE | 2024-11-19 16:09 | OP.COLON_ITS ---
Patient Name: Maria E Benz Procedure Date: 11/19/2024 3:37 PM Date of : 1990 Age: 34 Procedure: Colonoscopy Indications: Abdominal pain in the right lower quadrant Providers: Rolando Rucker DO Referring MD: Yayo Dasilva MD Medicines: Monitored Anesthesia Care Patient Profile: This is a 34 year old female. Refer to note in patient chart for documentation of history and physical. Last Colonoscopy: none. The patient's first colonoscopy is today. Complications: No immediate complications. Estimated blood loss: None. Procedure: Pre-Anesthesia Assessment: - Prior to the procedure, a History and Physical was performed, and patient medications and allergies were reviewed. The patient is competent. The risks and benefits of the procedure and the sedation options and risks were discussed with the patient. All questions were answered and informed consent was obtained. Patient identification and proposed procedure were verified by the physician in the pre-procedure area. Mental Status Examination: alert and oriented. Airway Examination: normal oropharyngeal airway and neck mobility. Respiratory Examination: clear to auscultation. CV Examination: normal. Prophylactic Antibiotics: The patient does not require prophylactic antibiotics. Prior Anticoagulants: The patient has taken no anticoagulant or antiplatelet agents except for aspirin. ASA Grade Assessment: II - A patient with mild systemic disease. After reviewing the risks and benefits, the patient was deemed in satisfactory condition to undergo the procedure. The anesthesia plan was to use monitored anesthesia care (MAC). Immediately prior to administration of medications, the patient was re-assessed for adequacy to receive sedatives. The heart rate, respiratory rate, oxygen saturations, blood pressure, adequacy of pulmonary ventilation, and response to care were monitored throughout the procedure. The physical status of the patient was re-assessed after the procedure. After I obtained informed consent, the scope was passed under direct vision. Throughout the procedure, the patient's blood pressure, pulse, and oxygen saturations were monitored continuously. The Colonoscope was introduced through the anus and advanced to the terminal ileum. The colonoscopy was performed without difficulty. The patient tolerated the procedure well. The quality of the bowel preparation was adequate. The terminal ileum, ileocecal valve, appendiceal orifice, and rectum were photographed. Scope In: 3:50:45 PM Scope Withdrawal Time 0 hours 8 minutes 22 seconds Scope Out: 4:01:55 PM Total Procedure Duration Time 0 hours 11 minutes 10 seconds Findings: The perianal and digital rectal examinations were normal. The colon (entire examined portion) appeared normal. Biopsies were taken with a cold forceps for histology. Verification of patient identification for the specimen was done. Estimated blood loss was minimal. The terminal ileum appeared normal. Biopsies were taken with a cold forceps for histology. Verification of patient identification for the specimen was done. Estimated blood loss was minimal. Impression: - The entire examined colon is normal. Biopsied. - The examined portion of the ileum was normal. Biopsied. Recommendation: - Discharge patient to home. - Resume previous diet. - Continue present medications. - Await pathology results. - Repeat colonoscopy for surveillance based on pathology results. Procedure Code(s): --- Professional --- 57376, Colonoscopy, flexible; with biopsy, single or multiple CPT copyright 2021 [employer]. All rights reserved. The codes documented in this report are preliminary and upon pool servicer review may be revised to meet current compliance requirements. Rolando Rucker DO 11/19/2024 4:08:55 PM This report has been signed electronically. Number of Addenda: 0 Note Initiated On: 11/19/2024 3:37 PM
--- NOTE | 2024-11-19 16:09 | POSTOPAN2_ITS ---
Anesthesia Postop Eval I Sum Postop Eval Completion status Anesthesia document: Postop Eval 1 completed: Yes Anesthesia Postop Eval I Summary Anesthesia Postop Eval I Summary: Anesthesia Postop Eval I: Assessment Summary Airway patent Yes 11/19/24 16:07 [employer]SEM[employer]ER [email or web address] Spontaneous unlabored Yes 11/19/24 16:07 [email or web address] respirations Mental status nausea No 11/19/24 16:07 [email or web address] Vomiting No 11/19/24 16:07 [email or web address] Anesthesia Postop Eval I: Fluid Summary Crystalloid volume administer 30 11/19/24 16:07 [employer]SEM[email or web address].CSIR (ml) Colloids volume administered ( ml) Blood Product volume administered (ml) Total IV fluid infused 30 11/19/24 16:07 [email or web address] Anesthesia Postop Eval I: Summary Notes Anesthesia Complication No 11/19/24 16:07 [email or web address] Anesthesia Complication Comment: Post-operative progress note Anesthesia: Postop Eval II Evaluation Mental status: Awake Pain Level: 0 nausea: No Vomiting: No
--- NOTE | 2024-11-19 16:09 | OP.CCLET_ITS ---
11/19/2024 Yayo Dasilva MD [address] [id number] Re : Colonoscopy procedure for Maria E Pondber Dear Dr. Dasilva This procedure was performed on Tuesday, November 19, 2024. My impressions and recommendations are as follows: Impressions : - The entire examined colon is normal. Biopsied. - The examined portion of the ileum was normal. Biopsied. Recommendations : - Discharge patient to home. - Resume previous diet. - Continue present medications. - Await pathology results. - Repeat colonoscopy for surveillance based on pathology results. My findings are described in the full procedure note, which is enclosed. If I can be of further assistance, please feel free to contact me at . Sincerely, Rolando Rucker, 11/19/2024 4:08:55 PM This report has been signed electronically.
--- NOTE | 2024-11-19 16:09 | PCM.POSTANE2 ---
Anesthesia Postop Eval I Sum Postop Eval Completion status Anesthesia document: Postop Eval 1 completed: Yes Anesthesia Postop Eval I Summary Anesthesia Postop Eval I Summary: Anesthesia Postop Eval I: Assessment Summary Airway patent Yes 11/19/24 16:07 RESEARCH [email or web address] Spontaneous unlabored Yes 11/19/24 16:07 RESEARCH [email or web address].CSIR respirations Mental status nausea No 11/19/24 16:07 RESEARCH TECHNICIAN.CSIR Vomiting No 11/19/24 16:07 RESEARCH [email or web address].CSIR Anesthesia Postop Eval I: Fluid Summary Crystalloid volume administer 30 11/19/24 16:07 RESEARCH [email or web address].CSIR (ml) Colloids volume administered ( ml) Blood Product volume administered (ml) Total IV fluid infused 30 11/19/24 16:07 RESEARCH [email or web address].CSIR Anesthesia Postop Eval I: Summary Notes Anesthesia Complication No 11/19/24 16:07 RESEARCH [email or web address].CSIR Anesthesia Complication Comment: Post-operative progress note Anesthesia: Postop Eval II Evaluation Mental status: Awake Pain Level: 0 nausea: No Vomiting: No
== END 2024-11-19 16:51 | disposition home or self-care (01) ==
LOC: EN 14:23 → AC 14:25
PROVIDERS: Anesthesiology; PCP Family Medicine; Referring Provider Family Medicine; Visit Provider Internal Medicine Gastroenterology
PROC: 0DJD8ZZ Inspection of Lower Intestinal Tract, Via Natural or Artificial Opening Endoscopic (ICD-10-PCS; CPT 45378; principal; 2024-11-19 15:25)
DX: K50.90 Crohn's disease, unspecified, without complications (principal); K57.30 Diverticulosis of large intestine without perforation or abscess without bleeding; K21.9 Gastro-esophageal reflux disease without esophagitis; Z80.0 Family history of malignant neoplasm of digestive organs; Z90.49 Acquired absence of other specified parts of digestive tract
CPT/HCPCS: 45380; 81025; 88305; A4216